=== PATIENT | male | born 1980 | race Caucasian/White ===

== ENCOUNTER → 2016-07-24 | Outpatient (CLI) | payer BC ==
--- NOTE | 2016-07-24 14:43 | DIAGNOSTIC IMAGING REPORT ---
CHEST 2 VIEWS ROUTINE CLINICAL HISTORY: Cough COMPARISON STUDY: No previous studies for comparison. FINDINGS: The cardiac and mediastinal contours are normal. There is no evidence of focal pulmonary consolidation. There is no evidence of failure. No pleural effusions are visualized.[ IMPRESSION: No active disease in the chest. Electronically signed by: Gonzales Caceres M.D. 07/24/2016 2:42 PM Dictated Date/Time: 07/24/2016 2:41 PM
== END | disposition home or self-care (01) ==
LOC: C.RAD1850 14:26
PROVIDERS: ATTEND Family Medicine
DX: R05 Cough (principal)

== ENCOUNTER → 2016-09-18 | Outpatient (CLI) | payer BC ==
--- NOTE | 2016-09-18 09:20 | DIAGNOSTIC IMAGING REPORT ---
ADDENDUM Comparison was made to prior studies of 2014 and 2013. Right testis is similar in appearance. Electronically signed by: Ger Dixon M.D. 09/23/2016 3:19 PM Dictated Date/Time: 09/23/2016 3:19 PM ORIGINAL REPORT TESTICULAR ULTRASOUND HISTORY: Pain RIGHT TESTICULAR PAIN COMPARISON: None. FINDINGS: Right testis: Maximum dimension 4.8 cm. Normal vascular flow. Heterogeneous internal architecture similar to the prior exam. Left testis: Maximum dimension 5.4 cm. Normal vascular flow. Small bilateral hydroceles. IMPRESSION: 1. Normal left testis ultrasound. 2. Stable heterogeneity of internal architecture of the right testis. 3. Small bilateral hydroceles. Electronically signed by: Ger Dixon M.D. 09/18/2016 9:19 AM Dictated Date/Time: 09/18/2016 9:13 AM
[2016-09-18 11:46] LABS: ALT/SGPT 121 U/L (12-78); AST/SGOT 46 U/L (15-37); BLOOD UREA NITROGEN 14 mg/dl (7-18); BUN/CREATININE RATIO 13.9 (10-20); CALCIUM 9.1 mg/dl (8.5-10.1); CARBON DIOXIDE 27 mmol/L (21-32); CHLORIDE 106 mmol/L (98-107); CHOLESTEROL 212 mg/dl (0-200); GLUCOSE 89 mg/dl (70-99); POTASSIUM 3.9 mmol/L (3.5-5.1); SODIUM 140 mmol/L (136-145); TRIGLYCERIDES 143 mg/dl (0-150); VERY LOW DENSITY LIPOPROT CALC 29 mg/dl
[2016-09-18 11:50] LABS: ALB/GLOB RATIO 1.2 (0.9-2); ALKALINE PHOSPHATASE 70 U/L (45-117); CHOLESTEROL/HDL RATIO 5.3; HDL CHOLESTEROL 40 mg/dl; LDL CHOLESTEROL CALCULATED 143 mg/dl
== END | disposition home or self-care (01) ==
LOC: C.ULTRBC 08:26
PROVIDERS: ATTEND Nurse Practitioner Family
DX: Z13.220 Encounter for screening for lipoid disorders (principal); I10 Essential (primary) hypertension

== ENCOUNTER → 2016-10-20 | Outpatient (CLI) | payer BC ==
[2016-10-20 12:42] LABS: BASO % 0.6 %; BASO ABS # 0.05 K/uL (0-0.2); COMPLETE YES; EOS % 2.7 %; HEMATOCRIT 45.1 % (42-52); IG% 0.2 %; LYMPH % 36.4 %; LYMPH ABS # 3.11 K/uL (1.2-3.4); MEAN CELL VOLUME 88.4 fL (80-100); MEAN CORPUSCULAR HEMOGLOBIN 30.6 pg (25-34); MEAN CORPUSCULAR HGB CONC 34.6 g/dl (32-36); MEAN PLATELET VOLUME 10.4 fL (7.4-10.4); MONO % 8.1 %; PLATELET COUNT 248 K/uL (130-400); WHITE BLOOD COUNT 8.54 K/uL (4.8-10.8)
== END | disposition home or self-care (01) ==
LOC: C.LAB1850 11:23
PROVIDERS: ATTEND Internal Medicine Pulmonary Disease
DX: J45.909 Unspecified asthma, uncomplicated (principal)

== ENCOUNTER → 2017-07-07 | Outpatient (CLI) | payer BC ==
--- NOTE | 2017-07-07 10:40 | DIAGNOSTIC IMAGING REPORT ---
SINUS CT WITHOUT CONTRAST CLINICAL HISTORY: CHRONIC SINUSITIS COMPARISON STUDY: None. Technique: Helical axial images of the sinuses were obtained without IV contrast. Coronal reformats were viewed. A dose lowering technique was utilized adhering to the principles of ALARA. CT DOSE: 269.19 mGycm FINDINGS: Visualized portions of the intracranial contents are unremarkable. The mastoid air cells are clear. Orbits are within normal limits. No bony destruction or mass is identified within the sinuses. Major drainage pathways are patent. There is no significant nasal septal deviation. Note is made of a jovi bullosa of the right middle turbinate. The sinuses are essentially clear. There is minimal mucosal thickening of the sphenoid and ethmoid sinuses. IMPRESSION: Essentially clear sinuses. Minimal mucosal thickening of the sinuses. No evidence for acute sinusitis. Patent major drainage pathways. Electronically signed by: Lucas Montes M.D. 07/07/2017 10:38 AM Dictated Date/Time: 07/07/2017 10:35 AM
== END | disposition home or self-care (01) ==
LOC: C.CTS 09:18
PROVIDERS: ATTEND Internal Medicine Pulmonary Disease
DX: J32.9 Chronic sinusitis, unspecified (principal)

== ENCOUNTER → 2017-07-29 | Outpatient (CLI) | payer BC ==
--- NOTE | 2017-07-30 06:00 | PAP/PSG TECHNICIAN REPORT ---
[facility] Tax Director Polysomnogram Report Study name: None Report date: 07/30/2017 Study date: 07/29/2017 Referring Physician: Dr. Agustin Davidson DO Name: DEMARCUS HARKINS Interpreting Physician: Agustin Davidson D.O. Date of : 1980 Tax Director: KENRICK Suarez. Sex: Male Age: 37 StudyType: PSG Weight: 329 lbs Height: 37 years, Height 5' 11" Neck Circum:20.5inches BMI: 45.88 Medications: Albuterol Sulfate 2.5mg/3ml, Combivent Respimat 20-100mcg/act, Cozaar 50mg, Dulera 200-5mcg/act, Omeprazole, ProAir HFA Patient History Study started on room air with no ETCO2 monitoring in room #6. 37 yr old male here tonight for a diagnostic psg. He complains of EDS, loud snoring and witnessed apnea. He has a history of asthma. His ESS=11/24. Neck circ=20.5inches Parameters Monitored NPSG: E1-M2, E2-M1, Fp1-M2, Fp2-M1, F3-M2, F4-M2, F4-M1, C3-M2, C4-M2, C4-M1, O1-M2, O2-M2, O2-M1, T3-M2, T4-M1, P3-M2, P4-M1, CHIN1, CHIN2, HR, EKG, Legs, PFLOW, SNOR, FLOW, CFLOW, Tidal Volume, THOR, ABDO, SpO2, PLTH, CPRESS, ETCO2 Wave, ETCO2, pH Sleep Architecture Sleep Stages Time at Lights Off 9:45:53 PM STAGES Time (min.) TST (%) Time at Lights On 5:17:53 AM Wake 67.5 -- Total Recording Time (TRT) 452.00 min. N1 24.5 6 Total Sleep Period (TSP) 443.0 min. N2 214.5 56 Total Sleep Time (TST) 384.5min. N3 71.5 19 Awake Time 67.5 min. REM 74.0 19 Wake after Sleep Onset 58.5 min. Sleep Efficiency (SE) 85 % Sleep Onset Latency (RAJANI) 9.0 min. Number of Stage 1 Shifts None Awakenings 26 Stage Changes 109 Number of REM periods 5 REM 74.0 19 REM Latency 77.5 min. NREM 310.5 81 Body Position Analysis Supine Right Left Side Prone Vertical Total Sleep Time (min.) 98.1 59.5 185.1 244.58 84.9 0.0 Total Sleep Time (%) 17% 15% 48% 64 19% N/A% Total Sleep Time REM (min.) 0.0 2.5 71.5 None 0.0 0.0 Total Sleep Time NREM (min.) 65.9 57.0 113.6 None 74.0 0.0 Intermittent Wake (min.) 32.1 3.5 21.0 None 10.9 0.0 Total Sleep Period (%) 20% None None None None None Arousals Myoclonus (PLM) * Events Count Index Events Count Index Spontaneous 41 6 Events Awake (PLMW) 108 96.0 Respiratory 25 4.7 Events Asleep w/ Arousal (PLMA) 11 1.7 PLM 11 2 Events Asleep w/o Arousal (PLMS) 135 21.1 Snoring 5 1 Total Asleep 146 22.8 Total 81 13 Total 254 34 Respiratory Analysis * CA OA MA CH H RERA Total Count 0 24 1 0 164 0 189 Index 0.0 3.7 0.2 0 25.6 0 29.5 Mean Duration 0.0 19.3 21.4 0.00 18.4 0.0 18.6 Longest Duration 0.0 27.7 21.4 0.00 21.4 0.0 75.9 Respiratory Event Summary Total Supine ~Supine Right Left Prone REM NREM Apneas Count 25 25 0 0 0 0 0 25 Index 3.9 23 0 0.0 0.0 0 0 5 Hypopneas (4% Desat) Count 164 68 96 3 89 4 26 138 Index 25.6 61.9 18 3.0 28.9 3.2 21.1 26.7 Apneas & All Hypopneas Count 189 93 96 3 89 4 26 163 Index 29.5 85 18 3 29 3 21.1 31.5 Respiratory Events (Reconciler+All Hyp+RERA) Count 189 93 96 3 89 4 26 163 Index 29.5 85 18 3.0 28.9 3.2 21.1 31.5 Respiratory Related Arousal Count 25 93 8 1 5 2 4 26 Index 4.7 20 2 1 2 2 3 5 Snoring Analysis Supine Right Left Prone REM NREM Total Snore duration 35.0 min Snores count 130 663 735 177 163 1,542 1,705 Snore mean duration 1.2 Sec Snores index 118 669 238 144 132.2 298.0 266.1 TST with snoring (%) 9.1% Desaturation Event Summary: Minimum %SpO2 Event Count Mean/Min/Max Duration(sec.) Desaturation Index % Time In Bed > 90 235 22.6 / 6.8 / 60.0 53.5 59.6 86 - 90 34 19.5 / 8.0 / 50.8 12.2 37.9 81 - 85 0 N/A 0.0 2.0 76 - 80 0 N/A 0.0 0.5 71 - 75 0 N/A 0.0 0.0 66 - 70 0 N/A 0.0 0.0 61 - 65 0 N/A 0.0 0.0 56 - 60 0 N/A 0.0 0.0 51 - 55 0 N/A 0.0 0.0 < 50 0 N/A 0.0 0.0 Total REM NREM Awake <50% 0.0 min. 0.0 min. 0.0 min. 0.0 min. 51 - 60% 0.0 min. 0.0 min. 0.0 min. 0.0 min. 61 - 70% 0.0 min. 0.0 min. 0.0 min. 0.0 min. 71 - 80% 2.3 min. 0.0 min. 2.2 min. 0.1 min. 81 - 90% 176.4 min. 28.9 min. 126.5 min. 21.0 min. 91 - 100% 263.7 min. 45.2 min. 180.9 min. 37.6 min. Average 91 91 91 91 Minimum SpO2 73 82 76 73 Desaturation Event Index 31.6 24.3 33.8 29.3 # Desat. Events below 89% 141 15 110 16 Time(%) with Saturation below 89% 16.1 1.5 12.7 1.9 Time(min.) with Saturation below 89% 71.3 6.8 56.0 8.5 Time (mins) REM (mins) NREM (mins) % of TST SpO2 Below 90% 181 29 N152 27.3 SpO2 Below 88% 44 0 0 9 Heart Rate Analysis Min (bpm) Max (bpm) Average (bpm) Awake 49 265 64 NREM 45 88 59 REM 43 73 55 Overall 43 88 59 Supplemental O2 Values Minimum O2 level: None Value Start Time End Time Tax Director Comments Mr. Harkins slept in the right, left, prone and supine positions. No cardiac arrhythmia noted. Some leg movements were noted. No bruxism noted. Snoring was noted and scored as a 3 on a scale of 1 through 5. (0=no snoring, 5=snoring loud enough to be heard through a closed door or down the [address]) He awoke to use the restroom 1 time during the night. He stated that he slept worse than when at home. The final report will be interpreted and signed by a sleep physician. The completed physician report will then be placed in the patient medical record. Therapy (cm H2O) 0 TIB (min.) 452.0 TST (min.) 384.5 Sleep Onset (min.) 9.0 REM Onset From Sleep (min.) 77.5 Sleep Efficiency % 85 Wakefulness (%) 15 Wakefulness (min.) 67.5 NREM 1 (%) 6 NREM 1 (min.) 24.5 NREM 2 (%) 56 NREM 2 (min.) 214.5 NREM 3 (%) 19 NREM 3 (min.) 71.5 REM (%) 19 REM (min.) 74.0 # Arousals 81 Arousal Index 13 # Snore 1,705 Snore Index 266.1 AHI 29.5 AHI Supine 85 AHI Non-Supine 18 NREM AHI 31.5 REM AHI 21.1 RDI 29.5 # Obstructive Apnea 24 # Central Apnea 0 # Mixed Apnea 1 # Hypopneas 164 RERAs 0 Total Respiratory Events 193 Time Below SpO2 89% (min.) 62.8 Mean NREM SpO2 (%) 91 Mean REM SpO2 (%) 91 Mean Sleep SpO2 (%) 91 Min NREM SpO2 (%) 76 Min REM SpO2 (%) 82 Position Supine (min.) 98.1 Position Non-supine (min.) 318.6 LM Index Sleep 22.8 LM Index NREM 22.0 LM Index REM 25.9 Mean Heart Rate (bpm) 59 Min Heart Rate (bpm) 43
--- NOTE | 2017-07-30 21:03 | Sleep Study ---
Sleep Study Report Date of Service: 07/29/2017 Sleep Study Report CLINICAL DATA: The patient is a 37-year-old male with a history of snoring, excessive daytime somnolence, and observed apneas. He has an Neihart score of 11 out of a possible 24. His BMI is 45.88. This was an in-lab overnight polysomnography. SLEEP ARCHITECTURE: The sleep period time was 443 minutes. The total sleep time was 384.5 minutes. The sleep efficiency was mildly reduced to 85 percent. The sleep latency was 9 minutes. Wake after sleep onset was increased to 58.5 minutes. The REM latency was 77.5 minutes. Sleep consisted of stage N1 6 percent, stage N2 56 percent, stage N3 19 percent, stage REM 19 percent. AROUSAL DATA: The patient had 81 arousals including 41 spontaneous arousals, 25 respiratory arousals, 11 PLM arousals, and 5 snoring arousals. The arousal index was 13. PLM DATA: Patient had a total of 146 periodic limb movements of sleep for a PLM index of 22.8. There were 11 arousals associated with limb movements for a PLM arousal index of 1.7. EKG: The cardiac rates 43-88 beats per minute. The average heart rate was 59 beats per minute. No cardiac arrhythmia was noted. RESPIRATORY DATA: The patient had a total of 189 respiratory events including 24 obstructive apneas, 1 mixed apnea, and 164 hypopneas. The longest apnea was 27.7 seconds. The mean duration of the hypopneas was 18.4 seconds. Hypopneas were scored according to the 4 percent desaturation rule. The apnea-hypopnea index was moderately elevated at 29.5 events per hour. This would reflect at least moderate obstructive sleep apnea. OXIMETRY DATA: The average saturation was 91 percent. The minimum saturation was 73 percent. There was a total of 71.3 minutes with saturations less than 89 percent. PLANNING INTERN COMMENTS: The patient slept on the right, left, prone, and supine positions. No cardiac arrhythmia noted. Some leg movements were noted. No bruxism noted. Snoring was noted and scored as a 3 on a scale of 1 through 5. He awakened to use the restroom 1 time during the night. IMPRESSIONS: 1. Moderate obstructive sleep apnea COMMENTS: The patient had a mild decrease in sleep efficiency. Sleep architecture was normal. He had moderate sleep apnea. This was much more pronounced when he was supine. The apnea-hypopnea index in the supine position was 85. There was moderate oxygen desaturations noted at times of respiratory events. There is a history of asthma as a comorbidity. RECOMMENDATIONS: 1. It is advised that the patient be treated with nasal CPAP. This could be accomplished either by treatment with auto CPAP or by referral to the Sleep Lab for a CPAP titration study. 2. It is suggested that the patient avoid sleeping in the supine position. 3. The patient has an elevated BMI of 45.88. A weight reduction program is advised. Copies To 1: Agustin Davidson DO; Amber Davis, MIREYA
== END | disposition home or self-care (01) ==
LOC: C.NEUR 21:00
PROVIDERS: ATTEND Internal Medicine Pulmonary Disease
DX: G47.33 Obstructive sleep apnea (adult) (pediatric) (principal)